=== PATIENT | male | born 1985 | race Caucasian/White ===

== ENCOUNTER 2016-10-18 13:02 | Emergency (ER) | payer MEDICAID ==
[2016-10-18 13:06] VITALS: BP 114/83; PULSE 79; RESP 14; TEMP 98.1; O2SAT 95
--- NOTE | 2016-10-18 13:22 | EDPHY ---
H & P Time Seen by Provider: 10/18/16 13:14 HPI/ROS: CHIEF COMPLAINT: right great toe pain HISTORY OF PRESENT ILLNESS: 31-year-old male presents emergency department reporting chronic ingrown toenails over his life. He states his right lateral toenail has been hurting for the last few days. He denies fevers or chills, no redness, no numbness or tingling to this foot, no other concerns. Smoking Status: Current some day smoker Physical Exam: GEN: Awake, alert, oriented, no acute distress RESP: nl resp effort MSK: Right great toe with full active flexion and extension at IP joint and MCP joint, cap refill less than 2 seconds SKIN: Right lateral toe nail of great toe with mild erythema to skin, no fluctuance, no drainage, no swelling. Constitutional: Initial Vital Signs Temperature (C) 36.7 C 10/18/16 13:04 Heart Rate 79 10/18/16 13:04 Respiratory Rate 14 10/18/16 13:04 Blood Pressure 114/83 H 10/18/16 13:04 O2 Sat (%) 95 10/18/16 13:04 O2 Delivery Mode Room Air Allergies/Adverse Reactions: No Known Allergies Allergy (Verified 08/23/16 19:56) Home Medications: Medication Instructions Recorded NK [No Known Home Meds] 10/18/16 MDM/Departure - Depart Disposition: Home, Routine, Self-Care Clinical Impression: Ingrown toenail without infection Condition: Good Instructions: Ingrown Nail (ED) Additional Instructions: Warm Epson salt soaks 5 times a day for 10 minutes. Follow up with the shoulder boner as needed. Return to the emergency department for fevers, pain that is not controlled, other questions or concerns. Take 600 mg of ibuprofen every 8 hours with food for 3-5 days as needed for pain. Referrals: Kip Avelar MD [Doctor of Podiatric Medicine] - As per Instructions (Director Targeted Marketing on-call )
== END 2016-10-18 13:48 | disposition home or self-care (01) ==
DX: L60.0 Ingrowing nail (principal); F17.200 Nicotine dependence, unspecified, uncomplicated

== ENCOUNTER 2016-11-28 09:59 | Emergency (ER) | payer MEDICAID ==
[2016-11-28 10:04] VITALS: BP 148/86; PULSE 71; RESP 16; TEMP 97.5; O2SAT 99
[2016-11-28] MEDS ORDERED: IBUPROFEN 600 MG TAB PO ONE (10:52)
--- NOTE | 2016-11-28 11:10 | EDPHY ---
H & P Time Seen by Provider: 11/28/16 11:01 HPI/ROS: This is a 31-year-old male presenting to the emergency department complaining of lower back pain. Patient states he has been increasing his exercise activity , lifting weights and bike riding, felt a pulled muscle 4-5 days ago. Patient states needs work note. Denies any other complaints REVIEW OF SYSTEMS: Constitutional: (-)fever (+)decrease in exercise due lower back pain Respiratory: (-)cough (-)shortness of breath Cardiac: (-)chest pain (-)palpitations Gastrointestinal: (-)abdominal pain Genitourinary: (-)bowel/bladder incont Musculoskeletal: (+) lower back pain Skin: (-)rashes Neurological: (-) headache (-)dizziness Psych: (-)anxiety (-)SI/HI Past Medical/Surgical History: PMH: Diverticulitis Smoking Status: Never smoked Physical Exam: CONSTITUTIONAL: patient appeared well nourished, non-ill appearing and normally developed. No acute distress. Vital signs as documented. HEENT: NCAT. PERRLA. NECK: Supple, FROM RESP: Non-labored resp effort, CTAB CARDIAC: RRR w/o murmur, lior. Normal S1/S2 GI: Abd soft NTTP, NEURO: AAOx3 NAD, ambulatory without difficulty MSK/EXTREMITIES: (+)lower back pain (-)midline tenderness (-)deformity noted one exam (+)left straight leg raises (+)FROM without difficulty. (+)cms intact SKIN: (-)rash. PSYCH: Normal affect, calm, no distress Constitutional: Initial Vital Signs Temperature (C) 36.4 C 11/28/16 10:01 Heart Rate 71 11/28/16 10:01 Respiratory Rate 16 11/28/16 10:01 Blood Pressure 148/86 H 11/28/16 10:01 O2 Sat (%) 99 11/28/16 10:01 O2 Delivery Mode Room Air Allergies/Adverse Reactions: No Known Allergies Allergy (Verified 11/28/16 10:00) Home Medications: Medication Instructions Recorded Cyclobenzaprine [Flexeril 10 MG 10 mg PO TID PRN #15 tab 11/28/16 (*)] Medical Decision Making ED Course/Re-evaluation: Discharge home---> stable, Discussed discharge plan with patient 1. Rest 2. Decrease strenuous activity 3. Heating pad or hot tub soaks to lower back with beneficial 4. Wearing a weight belt will be beneficial to decrease strain lower back 5. Ibuprofen 600 mg every 6-8 hours as needed, also take additional medication as needed Flexeril for as a muscle relaxer 6. Follow up with primary care as needed Differential Diagnosis: Clinical impression lower back pain with left sciatica, other differential diagnosis considered but not limited to left hamstring strain, traumatic injury and inguinal hernia - Data Points Medications Given: Discontinued Medications Ibuprofen (Motrin) 600 mg PO EDNOW ONE Stop: 11/28/16 10:53 Last Admin: 11/28/16 11:04 Dose: 600 mg Departure - Departure Disposition: Home, Routine, Self-Care Clinical Impression: Pain of back and left lower extremity Condition: Good Instructions: Low Back Strain (ED), Lower Back Exercises (ED) Additional Instructions: Discussed discharge plan with patient 1. Rest 2. Decrease strenuous activity 3. Heating pad or hot tub soaks to lower back with beneficial 4. Wearing a weight belt will be beneficial to decrease strain lower back 5. Ibuprofen 600 mg every 6-8 hours as needed, also take additional medication as needed Flexeril for as a muscle relaxer 6. Follow up with primary care as needed Referrals: [facility],. [Clinic] - As per Instructions Stand Alone Forms: Work Excuse Prescriptions: Cyclobenzaprine [Flexeril 10 MG (*)] 10 mg PO TID PRN #15 tab PRN Reason: Spasms
== END 2016-11-28 11:39 | disposition home or self-care (01) ==
DX: S39.92XA Unspecified injury of lower back, initial encounter (principal); S89.92XA Unspecified injury of left lower leg, initial encounter; X50.3XXA Overexertion from repetitive movements, initial encounter

== ENCOUNTER 2017-07-10 15:22 | Emergency (ER) | payer SELFPAY ==
[2017-07-10 15:36] VITALS: BP 122/108; PULSE 86; RESP 16; TEMP 97.7; O2SAT 97
--- NOTE | 2017-07-10 16:18 | EDPHY ---
H & P Time Seen by Provider: 07/10/17 16:07 HPI/ROS: CHIEF COMPLAINT: Left Achilles pain x1 year HISTORY OF PRESENT ILLNESS: 31-year-old male status post left Achilles surgery 1 year ago by an orthopedic surgeon in [place], [place], post Achilles tendon rupture, complaining of ongoing left Achilles pain worsened by standing for prolonged periods. 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 No foot drop. No paresthesia. No direct trauma or fall. No discoloration. PRIMARY CARE PROVIDER: REVIEW OF SYSTEMS: A ten point review of systems was performed and is negative with the exception of the items mentioned in the HPI PHYSICAL EXAM (Prior to examination, patient consented to physical exam, hands were washed and my usual and customary physical exam procedures followed) 1) GENERAL: Well-developed, well-nourished, alert and oriented. Appears to be in no acute distress. 2) HEAD: Normocephalic 3) HEENT: Pupils equal, round, reactive to light bilaterally. 4) LUNGS: Breathing comfortably. 5) MUSCULOSKELETAL: proximal tibia and fibula nontender . Posterior Achilles surgical scar noted, as well granulated. No signs of infection. 5th MT nontender negative Mandujano test, compartments soft. Negative Homans. No palpable cord. 6) SKIN: normal coloration. 7) VASCULAR: DP,PT pulses and cap refill present and brisk DIFFERENTIAL DIAGNOSIS: in no particular order including but not limited to fracture, sprain, compartment syndrome Procedure: Splint A Shahbaz boot splint was applied by ER submarine cable equipment technician. After application of the splint I returned and re-examined the patient. The splint was adequately immobilizing the joint and distal to the splint the patient's circulation and sensation were intact. Patient shows no signs of compartment syndrome. Was given orthopedic precautions. Smoking Status: Never smoked Constitutional: Initial Vital Signs Temperature (C) 36.5 C 07/10/17 15:34 Heart Rate 86 07/10/17 15:34 Respiratory Rate 16 07/10/17 15:34 Blood Pressure 122/108 H 07/10/17 15:34 O2 Sat (%) 97 07/10/17 15:34 O2 Delivery Mode Room Air Allergies/Adverse Reactions: No Known Allergies Allergy (Verified 07/10/17 15:33) Home Medications: Medication Instructions Recorded Hydrocodone/APAP 5/325 [[place] 1 tab PO Q6 PRN #10 tab 07/10/17 5/325 (RX)] MDM/Departure - MDM Procedures: Procedure: Splint A Shahbaz boot splint was applied by ER submarine cable equipment technician. After application of the splint I returned and re-examined the patient. The splint was adequately immobilizing the joint and distal to the splint the patient's circulation and sensation were intact. Patient shows no signs of compartment syndrome. Was given orthopedic precautions. ED Course/Re-evaluation: This patient's foot ankle lower extremity appear well at this time. Doubt DVT, doubt compartment syndrome. We discussed chronic pain management. Not think that emergent imaging studies are indicated at this time. We discussed elevation, splinting. He has been given a [place] boot, given analgesia, recommend he contact his orthopedic surgeon in [facility] for re- evaluation. Given usual and customary orthopedic precautions and instructions.Care of patient under supervision of secondary supervising physician Dr Delong . - Depart Disposition: Home, Routine, Self-Care Clinical Impression: Left Achilles pain Condition: Good Instructions: Ankle Sprain (ED) Additional Instructions: Return to the ER immediately if you experience discoloration, have worsening pain, numbness, tingling, or any other symptoms that concern you. If you received x-rays in the emergency department today, be advised, that ligamentous , tendon, muscular, and other non-bony injury cannot be fully ruled out. Try to keep your affected extremity elevated above the level of your chest, and keep cold packs on the affected area, for the next 48 hours. Stand Alone Forms: Work Excuse Prescriptions: Hydrocodone/APAP 5/325 [[place] 5/325 (RX)] 1 tab PO Q6 PRN #10 tab PRN Reason: Pain, Severe Referrals: Marika Kaminski MD [Medical Doctor] - 2-3 days, call for appt. (Dr. Kaminski is a [facility] orthopedic surgeon, I recommend you contact your original orthopedic surgeon in [place].)
[2017-07-10] MEDS ORDERED: OXYCODONE/APAP 5/325 TAB PO ONE (16:26)
== END 2017-07-10 17:05 | disposition home or self-care (01) ==
DX: M79.672 Pain in left foot (principal)
CPT/HCPCS: L4386

== ENCOUNTER 2017-08-27 01:55 | Emergency (ER) | payer MEDICAID, OTHER ==
[2017-08-27] MEDS ORDERED: ONDANSETRON DISINTEGRATING 4 MG TAB ONE (02:10)
[2017-08-27] MEDS ORDERED: ONDANSETRON DISINTEGRATING 4 MG TAB PO ONE (02:28)
[2017-08-27] MEDS ORDERED: PANTOPRAZOLE SODIUM 40 MG VIAL IVP ONE (02:31)
[2017-08-27 02:36] LABS: % IMMATURE GRANULYOCYTES 0.9 % (0.0-1.1); ABSOLUTE IMMATURE GRANULOCYTES 0.09 10^3/uL (0.00-0.10); ADD DIFF? NO; ADD MORPH? NO; ADD SCAN? NO; ATYPICAL LYMPHOCYTE FLAG 0 (0-99); FRAGMENT RBC FLAG 0 (0-99); HEMATOCRIT 49.6 % (40.0-51.0); HEMOGLOBIN 17.2 g/dL (13.7-17.5); LEFT SHIFT FLG 0 (0-99); LIPEMIA HEMOLYSIS FLAG 90 (0-99); MEAN CELL HEMOGLOBIN 31.6 pg (27.9-34.1); MEAN CELL HEMOGLOBIN CONCENTR. 34.7 g/dL (32.4-36.7); MEAN PLATELET VOLUME 9.7 fL (8.7-11.7); PLATELET CLUMPS FLAG 0 (0-99); PLATELET COUNT 300 10^3/uL (150-400); RED BLOOD CELL COUNT 5.45 10^6/uL (4.40-6.38); RED CELL DISTRIBUTION WIDTH 13.1 % (11.5-15.2)
[2017-08-27 02:49] LABS: ANION GAP 18 mEq/L (8-16); CALCIUM 9.7 mg/dL (8.5-10.4); CARBON DIOXIDE 19 mEq/l (22-31); CHLORIDE 111 mEq/L (97-110); CREATININE 0.9 mg/dL (0.7-1.3); ETHANOL SERUM 135 mg/dL (0-10); GLOMERULAR FILTRATION RATE > 60; GLUCOSE 81 mg/dL (70-100); POTASSIUM 4.5 mEq/L (3.5-5.2); SODIUM 148 mEq/L (134-144)
--- NOTE | 2017-08-27 03:16 | EDPHY ---
H & P Stated Complaint: SI- M1 - Personal History Current Tetanus/Diphtheria Vaccine: Yes Tetanus Vaccine Date: 2013 - Medical/Surgical History Hx Asthma: No Hx Chronic Respiratory Disease: No Hx Diabetes: No Hx Cardiac Disease: No Hx Renal Disease: No Hx Cirrhosis: No Hx Alcoholism: No Hx HIV/AIDS: No Hx Splenectomy or Spleen Trauma: No Other PMH: PSH- L 5TH FINGER, L ACHILES. PMH-diverticulitis, ADHD, PTSD, HTN, manic-depressant, bipolar, schizophrenia, - Social History Smoking Status: Never smoked Time Seen by Provider: 08/27/17 02:31 HPI/ROS: Chief Complaint: Suicidal, vomiting blood HPI: 31-year-old male with a history of depression presenting complaining of worsening depression and suicidal ideation. He is not currently taking antidepressant medications. He states that he is fleeting plans of walking into traffic but does definitive plan at this time. Patient is also complaining of worsening abdominal pain with nausea vomiting. He has been lap vomiting for the last 4 days. For the last 2 days he has been having blood in his vomit. He also states that he is having dark black stools. Also reports a history of diverticulosis but denies diarrhea or bright red blood per rectum. No fevers or chills. No chest pain or shortness of breath. Patient states he does drink some alcohol but not heavily or regularly. No history of liver disease that he is aware of. ROS: 10 point Review of Systems is negative except as noted in the HPI. PMH: Depression, diverticulosis, Achilles tendon rupture Social History: Positive smoking, occasional alcohol Family History: non-contributory Physical Exam: Gen: Awake, Alert, No Distress HEENT: Nose: no rhinorrhea Eyes: PERRLA, EOMI Mouth: Moist mucosa Neck: Supple, no JVD Chest: nontender, lungs clear to auscultation Heart: S1, S2 normal, no murmur Abd: Soft, moderate epigastric tenderness, no guarding Back: no CVA tenderness, no midline tenderness Ext: no edema, non-tender Skin: no rash Neuro: CN II-XII intact, Sensation grossly intact, Strength 5/5 in bilateral upper and lower extremities (Wayne Marti) Constitutional: Initial Vital Signs Temperature (C) 36.9 C 08/27/17 02:01 Heart Rate 99 08/27/17 02:01 Respiratory Rate 20 08/27/17 02:01 Blood Pressure 111/87 H 08/27/17 02:01 O2 Sat (%) 96 08/27/17 02:01 O2 Delivery Mode Room Air Allergies/Adverse Reactions: No Known Allergies Allergy (Verified 08/27/17 02:00) Home Medications: Medication Instructions Recorded CLONAZEPAM 08/27/17 Seroquel 08/27/17 Medical Decision Making ED Course/Re-evaluation: 31-year-old male with epigastric pain reports of hematemesis. He has had hematemesis in the department. Is a mix of coffee-ground emesis and bright red blood. Rectal exam shows brown stool, no melena. Will check labs. I had ordered a proton pump inhibitor. Patient is improved. He has a soft benign abdomen. Rectal exam is negative for occult blood. His CBC is normal. Remainder of his laboratory studies are completely normal. Symptoms are consistent with a Eve-Mathis tear. No evidence of significant upper abdominal bleeding at this time. 0700 patient signed out to Dr. Hollis pending health evaluation. He has had no further vomiting here. Symptoms improved. He is medically cleared for mental health evaluation. (Wayne Marti) 7:00 a.m.-I assumed care of this patient at shift change. He is currently agitated and pacing. Ativan 1 mg IV given. Repeat hematocrit ordered. Recent history of hematemesis after multiple episodes of vomiting, most likely Eve- Mathis tear. Initial hematocrit normal. Protonix given last night. 9am-repeat Hct unchanged. No further episodes of vomiting. No evidence of GI bleed. 1pm-This patient was seen by mental health and will be placed in a CSU. 3pm-signed over to Dr. Jones at shift change. (Lisa Hollis) 1500: The patient is signed out to me at change of shift. The patient is stable. Patient was stable during his stay. No new complaints. 2300: The patient is signed out to Dr. Camacho at change of shift. (Jo Ann Jones) I took over care of this patient at 11:00 p.m.. This patient is on an M1 hold for suicidal ideation. The patient is to be admitted to a psychiatric facility. Placement is pending at this time. 6:45 a.m., the patient is acutely agitated. We have attempted to verbally calm him down. He will not take in oral medication. He is in agreement to intramuscular medication. He was given 10 mg of Haldol with 2 mg of Versed IM. 7:00 a.m., patient relaxed and calm. Care turned over to Dr. Marielle Dias at this time. He still awaits placement for psychiatric admission. (Angie Camacho) Other Provider: I assumed care of this patient from Dr. Camacho at 7:00 a.m., change of shift. Patient had recently been agitated and decision has been made to sedate the patient. On my examination at 7:10 a.m., patient is now sedated, laying in his bed, sleeping. We will await placement. (Marielle Dias) - Data Points Laboratory Results: Laboratory Results 08/27/17 07:05 08/27/17 02:26 Medications Given: Discontinued Medications Clonazepam (Klonopin) 1 mg PO EDNOW ONE Stop: 08/27/17 19:39 Last Admin: 08/27/17 19:45 Dose: 1 mg Clonazepam (Klonopin) 1 mg PO EDNOW ONE Stop: 08/28/17 06:13 Last Admin: 08/28/17 06:13 Dose: 1 mg Clonazepam (Klonopin) 1 mg PO EDNOW ONE Stop: 08/28/17 13:06 Last Admin: 08/28/17 13:10 Dose: 1 mg Diphenhydramine HCl (Benadryl) 50 mg PO EDNOW ONE Stop: 08/27/17 19:39 Last Admin: 08/27/17 19:46 Dose: 50 mg Haloperidol Lactate (Haldol Injection) 10 mg IM EDNOW ONE Stop: 08/28/17 06:44 Last Admin: 08/28/17 06:58 Dose: 10 mg Haloperidol Lactate (Haldol Injection) 10 mg IM EDNOW ONE Stop: 08/28/17 13:59 Last Admin: 08/28/17 14:08 Dose: 10 mg Lorazepam (Ativan Injection) 1 mg IVP EDNOW ONE Stop: 08/27/17 07:02 Last Admin: 08/27/17 07:11 Dose: 1 mg Lorazepam (Ativan) 1 mg PO EDNOW ONE Stop: 08/27/17 11:29 Last Admin: 08/27/17 11:31 Dose: 1 mg Midazolam HCl (Versed) 2 mg IM EDNOW ONE Stop: 08/28/17 06:45 Last Admin: 08/28/17 06:58 Dose: 2 mg Midazolam HCl (Versed) 2 mg IM EDNOW ONE Stop: 08/28/17 14:00 Last Admin: 08/28/17 14:08 Dose: 2 mg Ondansetron HCl (Zofran Odt) 4 mg PO EDNOW ONE Stop: 08/27/17 02:29 Last Admin: 08/27/17 02:38 Dose: 4 mg Pantoprazole Sodium (Protonix) 40 mg IVP EDNOW ONE Stop: 08/27/17 02:32 Last Admin: 08/27/17 02:38 Dose: 40 mg Quetiapine Fumarate (Seroquel) 200 mg PO EDNOW ONE Stop: 08/27/17 19:39 Last Admin: 08/27/17 19:46 Dose: 200 mg Departure - Departure Disposition: Other Psych, Not Rina Clinical Impression: Suicidal ideation Condition: Good Referrals: NONE *PRIMARY CARE P,. [Primary Care Provider] - As per Instructions
[2017-08-27 03:39] LABS: ALBUMIN 4.6 g/dL (3.5-5.0); BILIRUBIN,TOTAL 0.5 mg/dL (0.1-1.4); BILIRUBIN-CONJUGATED 0.4 mg/dL (0.0-0.5); BILIRUBIN-UNCONJUGATED 0.1 mg/dL (0.0-1.1); TOTAL PROTEIN 7.9 g/dL (6.3-8.2)
[2017-08-27 03:40] LABS: INR 0.95 (0.83-1.16); PROTIME(PATIENT) 12.9 SEC (12.0-15.0)
[2017-08-27 03:41] LABS: APTT 30.2 SEC (23.0-38.0)
[2017-08-27] MEDS ORDERED: LORazepam 2 MG/ML INJ IVP ONE (07:01)
[2017-08-27 07:17] LABS: % IMMATURE GRANULYOCYTES 0.7 % (0.0-1.1); ABSOLUTE IMMATURE GRANULOCYTES 0.08 10^3/uL (0.00-0.10); ADD DIFF? NO; ADD MORPH? NO; ADD SCAN? NO; ATYPICAL LYMPHOCYTE FLAG 10 (0-99); FRAGMENT RBC FLAG 0 (0-99); HEMATOCRIT 49.3 % (40.0-51.0); LEFT SHIFT FLG 0 (0-99); LIPEMIA HEMOLYSIS FLAG 90 (0-99); MEAN CELL HEMOGLOBIN 31.5 pg (27.9-34.1); MEAN CELL HEMOGLOBIN CONCENTR. 34.5 g/dL (32.4-36.7); MEAN CELL VOLUME 91.5 fL (81.5-99.8); MEAN PLATELET VOLUME 9.6 fL (8.7-11.7); PLATELET CLUMPS FLAG 0 (0-99); PLATELET COUNT 290 10^3/uL (150-400); RED BLOOD CELL COUNT 5.39 10^6/uL (4.40-6.38); RED CELL DISTRIBUTION WIDTH 13.2 % (11.5-15.2)
[2017-08-27] MEDS ORDERED: LORazepam 1 MG TAB PO ONE (11:28)
[2017-08-27] MEDS ORDERED: diphenhydrAMINE 25 MG CAP PO ONE (19:38)
[2017-08-27] MEDS ORDERED: clonazePAM 1 MG TAB PO ONE (19:38)
[2017-08-27] MEDS ORDERED: QUEtiapine FUMARATE 200 MG TAB PO ONE (19:38)
[2017-08-28] MEDS ORDERED: clonazePAM 1 MG TAB ONE (06:09)
[2017-08-28] MEDS ORDERED: clonazePAM 1 MG TAB PO ONE (06:12)
[2017-08-28] MEDS ORDERED: OLANZapine DISINTEGR 10 MG TAB ONE (06:39)
[2017-08-28] MEDS ORDERED: HALOPERIDOL LACT 5 MG/ML INJ IM ONE (06:43)
[2017-08-28] MEDS ORDERED: MIDAZOLAM 2 MG/2 ML VIAL ONE (06:44)
[2017-08-28] MEDS ORDERED: MIDAZOLAM 10 MG/2 ML VIAL IM ONE (06:44)
[2017-08-28] MEDS ORDERED: HALOPERIDOL LACT 5 MG/ML INJ ONE (06:44)
[2017-08-28] MEDS ORDERED: MIDAZOLAM 10 MG/2 ML VIAL ONE (06:45)
[2017-08-28 07:54] VITALS: RESP 16; TEMP 97.9
[2017-08-28] MEDS: clonazePAM 1 MG TAB PO ONE ×2 (13:09→13:10)
[2017-08-28 13:42] VITALS: BP 144/86; PULSE 88; O2SAT 95
[2017-08-28] MEDS: MIDAZOLAM 10 MG/2 ML VIAL IM ONE (14:08)
[2017-08-28] MEDS: HALOPERIDOL LACT 5 MG/ML INJ IM ONE (14:08)
== END 2017-08-28 13:40 ==
LOC: EEVIPCON 01:55
DX: R45.851 Suicidal ideations (principal); I10 Essential (primary) hypertension
CPT/HCPCS: 80305; 96374; G0480; J2060; J2250

== ENCOUNTER 2017-09-23 11:51 | Emergency (ER) | payer MEDICAID ==
[2017-09-23 12:12] VITALS: RESP 16; TEMP 97.7
[2017-09-23] MEDS ORDERED: LORazepam 2 MG/ML INJ IVP ONE (12:27)
--- NOTE | 2017-09-23 12:48 | EDPHY ---
General - History Smoking Status: Never smoked Narrative: CHIEF COMPLAINT: Alcohol withdrawal HISTORY OF PRESENT ILLNESS: Patient arrives with complaint of alcohol withdrawal. He says that he wants to get off alcohol. He attempted to do so last night by [facility] He says that they turned him away due to his previous Klonopin use. He says he is not on the Klonopin for 2-3 days and started feeling shaky. He also had not had anything to drink for 2 days. He was concern for withdrawal so he went and had some alcohol late last night and into this morning. This has improved his symptoms. He has no tremor at this time. Some nausea but no vomiting. No chest pain or shortness of breath. No headache or dizziness. No other associated complaints or modifying factors. REVIEW OF SYSTEMS: Ten systems reviewed and are negative unless otherwise noted in the HPI PCP: [facility] SPECIALISTS: None PAST MEDICAL HISTORY: Alcohol abuse, depression and insomnia PAST SURGICAL HISTORY: No surgical history SOCIAL HISTORY: Heavy alcohol use with approximately 12 pack per day of beers over the past 20 years. Last intake was several beers at 7:00 a.m. this morning FAMILY HISTORY: Noncontributory EXAMINATION General Appearance: Alert, no distress resting comfortably watching television Head: normocephalic, atraumatic Eyes: Pupils equal and round, no conjunctival pallor or injection ENT, Mouth: Mucous membranes moist Neck: Normal inspection, supple, non-tender Respiratory: Lungs are clear to auscultation Cardiovascular: Regular rate and rhythm. No murmur Gastrointestinal: Abdomen is soft and nontender Back: non-tender, no bony abnormalities Neurological: GCS 15. Cranial nerves 2-12 grossly intact. No tremor. A&O, nonfocal, normal gait. Strength is symmetric in all 4 limbs. No pronator drift. Normal finger to nose. Skin: Warm and dry, no rash Extremities: Nontender, no pedal edema Psychiatric: Mood and affect normal DIFFERENTIAL DIAGNOSES: Including but not limited to acute alcohol intoxication, alcohol withdrawal, delirium tremens MDM: 12:45 p.m. Acute alcohol intoxication of patient does admit to alcohol use daily. He was feeling symptomatic last night and attempted to go [facility]. He says that he instead went home and drink some alcohol this morning. He is now here asking for help and would like to go to the [facility] for detox. He is not encephalopathic or delirious. Vital signs are stable. He is tolerating intake by mouth. He has no tremor or seizure-like activity. He does appear to be intoxicated but is clinically sober with no slurred speech and fully ambulatory without assistance. I do feel he is stable for discharge to the [facility] with standard Librium protocol. He will be sent over by cab directly with no stops. We discussed ED precautions for any return of symptoms, chest pain, difficulty thought process. He is comfortable this plan and discharged in stable condition. SUPERVISION: Patient was independently examined, but I discussed the case with my secondary supervising physician Dr. Figueroa ([facility]) The patient was evaluated and managed by the physician prosthetic assistant. I have reviewed this chart and I agree with the findings and plan of care as documented , as indicated by my signature. I am the secondary supervising physician. ( Penny Figueroa) - Objective Vital Signs: Initial Vital Signs Temperature (C) 36.5 C 09/23/17 11:51 Heart Rate 100 09/23/17 11:51 Respiratory Rate 16 09/23/17 11:51 Blood Pressure 124/94 H 09/23/17 11:51 O2 Sat (%) 96 09/23/17 11:51 O2 Delivery Mode Room Air Allergies/Adverse Reactions: No Known Allergies Allergy (Verified 09/23/17 14:50) Home Medications: Medication Instructions Recorded CLONAZEPAM 08/27/17 Seroquel 08/27/17 Medications Given: Discontinued Medications Chlordiazepoxide (Librium 25 Mg Prepack#6) 1 btl TAKEHOME EDNOW ONE Stop: 09/23/17 12:50 Last Admin: 09/23/17 12:59 Dose: 1 btl Chlordiazepoxide HCl (Librium) 50 mg PO EDNOW ONE Stop: 09/23/17 14:34 Last Admin: 09/23/17 14:45 Dose: Not Given Lorazepam (Ativan Injection) 1 mg IVP EDNOW ONE Stop: 09/23/17 12:28 Last Admin: 09/23/17 12:31 Dose: 1 mg Departure - Departure Disposition: Home, Routine, Self-Care Clinical Impression: Alcohol abuse Acute alcohol intoxication Qualifiers: Complication of substance-induced condition: uncomplicated Qualified Code(s): F10.929 - Alcohol use, unspecified with intoxication, unspecified Condition: Good Instructions: Chlordiazepoxide (By mouth), Alcohol Intoxication (ED), Abuse of Alcohol (ED) Additional Instructions: 1. Proceed directly to the [facility] without stops by cab 2. Librium protocol per usual Referrals: [facility],. [Clinic] - As per Instructions [facility] 24 Hours [Outside] - As per Instructions
[2017-09-23] MEDS ORDERED: CHLORDIAZEPOXIDE 25MG PREPK#6 BTL TAKEHOME ONE (12:49)
[2017-09-23 13:12] VITALS: BP 129/91; PULSE 102; O2SAT 94
[2017-09-23] MEDS ORDERED: chlordiazePOXIDE 25 MG CAP PO ONE (14:33)
== END 2017-09-23 13:11 | disposition home or self-care (01) ==
LOC: EDUNIT#
DX: F10.129 Alcohol abuse with intoxication, unspecified (principal)
CPT/HCPCS: 96374; J2060

== ENCOUNTER 2017-09-23 14:49 | Emergency (ER) | payer MEDICAID ==
[~2017-09-23 14:49] MED LIST: QUEtiapine FUMARATE 300 MG TAB PO SCH; clonazePAM 0.5 MG TAB PO SCH
[2017-09-23 14:59] VITALS: TEMP 98.2
--- NOTE | 2017-09-23 15:06 | EDPHY ---
H & P Stated Complaint: just discharged to [facility]/feeling suicidal Time Seen by Provider: 09/23/17 15:02 HPI/ROS: CHIEF COMPLAINT: Suicidal ideation HISTORY OF PRESENT ILLNESS: The patient presents to the ED with suicidal ideation. He was seen in the emergency department earlier today with alcohol intoxication. The plan was for the [facility] to [facility]. Immediately after leaving the department the patient returned with a chief complaint of suicidal ideation. The patient tells me that he is no longer suicidal but simply made that statement at triage because he was not able to go to the [facility] secondary to his clonazepam use. The patient states he is simply "looking for help." The patient denies any ingestion. The patient typically takes clonazepam 1 mg daily and 300 mg of Seroquel. REVIEW OF SYSTEMS: A comprehensive 10 point review of systems is otherwise negative aside from elements mentioned in the history of present illness. Source: Patient - Personal History Current Tetanus/Diphtheria Vaccine: Yes Tetanus Vaccine Date: 2013 - Medical/Surgical History Hx Asthma: No Hx Chronic Respiratory Disease: No Hx Diabetes: No Hx Cardiac Disease: No Hx Renal Disease: No Hx Cirrhosis: No Hx Alcoholism: Yes Hx HIV/AIDS: No Hx Splenectomy or Spleen Trauma: No Other PMH: PSH- L 5TH FINGER, L ACHILES. PMH-diverticulitis, ADHD, PTSD, HTN, manic-depressant, bipolar, schizophrenia, ETOH - Social History Smoking Status: Never smoked - Physical Exam Exam: General Appearance: Alert, no distress Eyes: Pupils equal and round no pallor or injection ENT, Mouth: Mucous membranes moist Respiratory: There are no retractions, lungs are clear to auscultation Cardiovascular: Regular rate and rhythm Gastrointestinal: Abdomen is soft and nontender, no masses, bowel sounds normal Neurological: A&O, normal motor function, normal sensory exam, normal cranial nerves Skin: Warm and dry, no rashes Musculoskeletal: Neck is supple nontender Extremities: symmetrical, full range of motion Psychiatric: Alert and oriented x3, currently denying suicidal ideation, does report depression and anxiety surrounding problems with his relationship with his mother in [place] and his ongoing alcohol dependence. Constitutional: Initial Vital Signs Temperature (C) 36.8 C 09/23/17 14:50 Heart Rate 94 09/23/17 14:50 Respiratory Rate 18 09/23/17 14:50 Blood Pressure 138/90 H 09/23/17 14:50 O2 Sat (%) 94 09/23/17 14:50 O2 Delivery Mode Room Air Allergies/Adverse Reactions: No Known Allergies Allergy (Verified 09/23/17 14:50) Home Medications: Medication Instructions Recorded CLONAZEPAM 08/27/17 Seroquel 08/27/17 QUEtiapine FUMARATE [Seroquel 300 mg PO HS #4 tab 09/23/17 300mg (*)] clonazePAM [Klonopin (*)] 0.5 mg PO HS #4 tab 09/23/17 Medical Decision Making ED Course/Re-evaluation: I reviewed the patient's past medical record including his ED visit from earlier today. The patient presents to the ED with depression and fleeting suicidal thoughts surrounding his alcohol dependence. The patient was medically cleared for psychiatric evaluation. The patient was seen by [facility]. They have made arrangements for the patient to be [facility]. He will be discharged to the facility with a 4 day supply of his regular Seroquel and clonazepam. The patient is no longer suicidal emergency department. He does contract for safety. He is comfortable being discharged to the [facility] for further assistance with his alcohol abuse. The patient will be discharged home with customary aftercare instructions and return precautions. Differential Diagnosis: Differential diagnosis considered includes alcohol abuse, alcohol dependence, suicidal ideation, psychosis - Data Points Laboratory Results: Laboratory Results 09/23/17 12:00 09/23/17 12:00 09/23/17 09/23/17 09/23/17 12:30 12:00 12:00 WBC 9.67 10^3/uL H 10^3/uL (3.80-9.50) RBC 5.64 10^6/uL 10^6/uL (4.40-6.38) Hgb 17.8 g/dL H g/dL (13.7-17.5) Hct 49.8 % % (40.0-51.0) MCV 88.3 fL fL (81.5-99.8) MCH 31.6 pg pg (27.9-34.1) MCHC 35.7 g/dL g/dL (32.4-36.7) RDW 13.1 % % (11.5-15.2) Plt Count 338 10^3/uL 10^3/uL (150-400) MPV 10.0 fL fL (8.7-11.7) Neut % (Auto) 64.3 % % (39.3-74.2) Lymph % (Auto) 27.7 % % (15.0-45.0) [place] % (Auto) 5.2 % % (4.5-13.0) Eos % (Auto) 1.1 % % (0.6-7.6) Baso % (Auto) 0.5 % % (0.3-1.7) Nucleat RBC Rel Count 0.0 % % (0.0-0.2) Absolute Neuts (auto) 6.21 10^3/uL 10^3/uL (1.70-6.50) Absolute Lymphs (auto) 2.68 10^3/uL 10^3/uL (1.00-3.00) Absolute Monos (auto) 0.50 10^3/uL 10^3/uL (0.30-0.80) Absolute Eos (auto) 0.11 10^3/uL 10^3/uL (0.03-0.40) Absolute Basos (auto) 0.05 10^3/uL 10^3/uL (0.02-0.10) Absolute Nucleated RBC 0.00 10^3/uL 10^3/uL (0-0.01) Immature Gran % 1.2 % H % (0.0-1.1) Immature Gran # 0.12 10^3/uL H 10^3/uL (0.00-0.10) Sodium 142 mEq/L mEq/L (134-144) Potassium 4.6 mEq/L mEq/L (3.5-5.2) Chloride 106 mEq/L mEq/L (97-110) Carbon Dioxide 11 mEq/l L mEq/l (22-31) Anion Gap 25 mEq/L H mEq/L (8-16) BUN 12 mg/dL mg/dL (7-23) Creatinine 1.1 mg/dL mg/dL (0.7-1.3) Estimated GFR > 60 Glucose 107 mg/dL H mg/dL (70-100) Calcium 10.1 mg/dL mg/dL (8.5-10.4) Urine Opiates Screen NEGATIVE (NEGATIVE) Urine Barbiturates NEGATIVE (NEGATIVE) Ur Phencyclidine Scrn NEGATIVE (NEGATIVE) Ur Amphetamine Screen NEGATIVE (NEGATIVE) U Benzodiazepines Scrn NON-NEGATIVE H (NEGATIVE) Urine Cocaine Screen NON-NEGATIVE H (NEGATIVE) U Marijuana (THC) Screen NON-NEGATIVE H (NEGATIVE) Ethyl Alcohol 87 mg/dL H mg/dL (0-10) Medications Given: Discontinued Medications Chlordiazepoxide (Librium 25 Mg Prepack#6) 1 btl TAKEHOME EDNOW ONE Stop: 09/23/17 18:46 Last Admin: 09/23/17 18:51 Dose: 1 btl Clonazepam (Klonopin) 0.5 mg PO EDNOW ONE Stop: 09/23/17 18:41 Last Admin: 09/23/17 18:41 Dose: 0.5 mg Lorazepam (Ativan) 1 mg PO EDNOW ONE Stop: 09/23/17 18:06 Last Admin: 09/23/17 18:11 Dose: 1 mg Quetiapine Fumarate (Seroquel) 300 mg PO EDNOW ONE Stop: 09/23/17 15:18 Last Admin: 09/23/17 15:59 Dose: 300 mg Departure - Departure Disposition: Home, Routine, Self-Care Clinical Impression: Alcoholism Condition: Good Instructions: Abuse of Alcohol (ED) Additional Instructions: 1. Please follow-up with the mental health resources provided in the ED today. 2. [facility], [facility] does operate a 24/7 psychiatric crisis unit located at [address] [place] [address]. The telephone number for the 24 hour crisis center is [phone]. 3. Please return to the ED if you are feeling suicidal, having thoughts of harming yourself/others or should you feel unsafe or have worsening symptoms. Referrals: [facility],. [Clinic] - As per Instructions Prescriptions: clonazePAM [Klonopin (*)] 0.5 mg PO HS #4 tab QUEtiapine FUMARATE [Seroquel 300mg (*)] 300 mg PO HS #4 tab
[2017-09-23 15:12] LABS: PLATELET COUNT 338 10^3/uL (150-400)
[2017-09-23] MEDS ORDERED: QUEtiapine FUMARATE 300 MG TAB PO ONE (15:17)
[2017-09-23] MEDS ORDERED: LORazepam 1 MG TAB PO ONE (18:05)
[2017-09-23 18:12] VITALS: RESP 18
[2017-09-23] MEDS ORDERED: clonazePAM 0.5 MG TAB ONE (18:31)
[2017-09-23] MEDS ORDERED: clonazePAM 0.5 MG TAB PO ONE (18:40)
[2017-09-23] MEDS ORDERED: CHLORDIAZEPOXIDE 25MG PREPK#6 BTL TAKEHOME ONE (18:45)
--- NOTE | 2017-09-23 18:50 | ASDISCHSUM ---
Discharge Information Plan Status:Substance Abuse Referrals Medically Cleared to Leave: Discharge Date: CM D/C Disposition:Other (Not listed) ADT D/C Disposition:Home, Routine, Self-Care Projected Discharge Date: Transportation at D/C:Cab Voucher Discharge Delay Reason: Follow-Up Date: Discharge Slot: Final Diagnosis: Placement Information Patient Contact Information Contact Name:IKE Relationship:Cousin Address: Work Phone: [place] [facility] Phone: State/[place] Email: Financial Information Financial Class: Primary Plan Desc:[employer] Primary Plan Number:[id number] Secondary Plan Desc: Secondary Plan Number: Assessment Information Intervention Information
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
[2017-09-23 19:16] VITALS: BP 114/85; PULSE 120; O2SAT 93
== END 2017-09-23 19:15 | disposition home or self-care (01) ==
DX: F10.20 Alcohol dependence, uncomplicated (principal); I10 Essential (primary) hypertension
CPT/HCPCS: 80305; G0480

== ENCOUNTER 2017-09-24 19:47 | Emergency (ER) | payer MEDICAID ==
--- NOTE | 2017-09-24 20:12 | EDPHY ---
H & P Stated Complaint: SI, ETOH - Personal History Tetanus Vaccine Date: 2013 - Medical/Surgical History Hx Asthma: No Hx Chronic Respiratory Disease: No Hx Diabetes: No Hx Cardiac Disease: No Hx Renal Disease: No Hx Cirrhosis: No Hx Alcoholism: Yes Hx HIV/AIDS: No Hx Splenectomy or Spleen Trauma: No Other PMH: PSH- L 5TH FINGER, L ACHILES. PMH-diverticulitis, ADHD, PTSD, HTN, manic-depressant, bipolar, schizophrenia, ETOH - Social History Smoking Status: Never smoked HPI/ROS: CHIEF COMPLAINT: Alcohol HISTORY OF PRESENT ILLNESS: The patient is a 32 y/o male with a history of alcoholism, bipolar disorder, schizoaffective disorder arriving via [employer] for alcohol and suicidal ideations. [employer] placed him on an M1. He was seen in this ED yesterday for suicidal ideation and asking for detox. He was [facility] to the [facility] but the patient left voluntarily because the "[facility] wouldn't give him his medications and were rude and disrespectful". Today he states "I don't want to live and I'm very unhappy, miserable, and lost". If he cannot be seen in this ED he states "give me a rope and I'll take care of it" as well as "I can't be on my own because I don't want to hurt myself". He believes he would feel better if he had somewhere to live and if he would be able to stop drinking. Denies taking Seroquel today. Denies chest pain, abdominal pain, bowel or urinary complaints, paresthesias or other pertinent symptoms. REVIEW OF SYSTEMS: A ten point review of systems was performed and is negative with the exception of the items mentioned in the HPI. Past medical history: Alcoholism Bipolar disorder Schizoaffective disorder ADHD Hypertension Past surgical history: Left 5th finger Left Achilles Family history: Denies Social history: Transient Single Alcohol use General Appearance: Agitated. Alert. Vital signs reviewed. Blood pressure 110/ 58, heart rate 110 at triage. Eyes: Pupils equal and round, no conjunctival injection, no discharge. Anicteric. ENT, Mouth: Mucous membranes are moist. Neck: No lymphadenopathy, supple. Respiratory: Lungs are clear to auscultation; no wheezes, rales, or rhonchi. Cardiovascular: Regular rate and rhythm; no murmur, rub, or gallop. Gastrointestinal: Abdomen is soft and nontender, no masses or organomegaly, bowel sounds normal. Skin: Warm and dry, no rashes on exposed skin, normal color. Well-healed linear scars on his forearms. There is an abrasion on the right distal forearm , palmar aspect--this does not appear to be a self-inflicted laceration. Back: Nontender to palpation over the thoracolumbar spine. Extremities: No lower extremity edema, no calf tenderness or swelling. Neurological: Alert and oriented. Moving all four extremities easily and equally. Psychiatric: Angry affect. (Penny Figueroa) Constitutional: Initial Vital Signs Temperature (C) 36.4 C 09/24/17 19:50 Heart Rate 110 H 09/24/17 19:50 Respiratory Rate 19 09/24/17 19:50 Blood Pressure 110/58 L 09/24/17 19:50 O2 Sat (%) 93 09/24/17 19:50 O2 Delivery Mode Room Air Allergies/Adverse Reactions: No Known Allergies Allergy (Verified 09/24/17 19:49) Home Medications: Medication Instructions Recorded CLONAZEPAM 08/27/17 Seroquel 08/27/17 QUEtiapine FUMARATE [Seroquel 300 mg PO HS #4 tab 09/23/17 300mg (*)] clonazePAM [Klonopin (*)] 0.5 mg PO HS #4 tab 09/23/17 Medical Decision Making ED Course/Re-evaluation: The patient is a 32 y/o male with a history of alcoholism, bipolar disorder, schizoaffective disorder arriving via [employer] for alcohol and suicidal ideations. Police have placed him on a mental health hold. On exam he is agitated and stating he is going to kill himself using a rope. Patient's blood alcohol is 162. Will await functional sobriety and have mental health re-evaluate him. I suspect that he is interested in a place to sleep tonight. I am not convinced that he is serious about getting sober. He does report suicidal thoughts, but I think that secondary gain is part of his motivation. Care transferred to Dr. Marti at 11 PM. (Penny Figueroa) Differential Diagnosis: Considered a differential diagnosis that includes but is not limited to effect of intoxicants, suicidality, homicidality, psychosis, depression, miley. (Penny Figueroa) Other Provider: 09/24/17 2300 care assumed by me from Dr. Figueroa pending sober mental health evaluation. 0400 patient increasingly agitated. Patient has been given Zyprexa 10 mg. Pain is now resting comfortably. Patient has been seen by the mental health head butler. They will be looking for placement for him. 0700 patient signed out to Dr. Cardenas pending placement. (Wayne Marti) 1500 - Patient signed out to Dr. Garcia pending placement. (Baltazar Cardenas) I assumed care of the patient at shift change. The patient was evaluated by [facility] who was range for the patient to be admitted at [facility]. The patient was accepted for admission by Dr. Narvaez. I have filled out the [facility] transfer form. (Dave Garcia) - Data Points Laboratory Results: Laboratory Results 09/24/17 20:02 09/24/17 20:02 Medications Given: Discontinued Medications Chlordiazepoxide HCl (Librium) 50 mg PO EDNOW ONE Stop: 09/25/17 08:51 Last Admin: 09/25/17 09:10 Dose: 50 mg Lorazepam (Ativan) 1 mg PO EDNOW ONE Stop: 09/25/17 10:06 Last Admin: 09/25/17 10:12 Dose: 1 mg Olanzapine (Zyprexa Im Injection) 10 mg IM EDNOW ONE Stop: 09/25/17 02:41 Last Admin: 09/25/17 02:47 Dose: 10 mg Quetiapine Fumarate (Seroquel) 100 mg PO EDNOW ONE Stop: 09/25/17 10:06 Last Admin: 09/25/17 10:12 Dose: 100 mg Departure - Departure Disposition: Other Psych, Not [place] Clinical Impression: Alcoholism, Suicidal ideation Condition: Good Instructions: Abuse of Alcohol (ED) Referrals: [facility] [Outside] - As per Instructions Report Scribed for: Penny Figueroa Report Scribed by: Barbara Whitehead Date of Report: 09/24/17 Time of Report: 21:02 Physician Review and Approval Statement: 09/24/17 20:12 Portions of this note were transcribed by the certified medical records coder. I, Dr. Penny Figueroa, personally performed the history, physical exam, and medical decision- making; and confirmed the accuracy of the information in the transcribed note. ( Penny Figueroa)
[2017-09-24 20:19] LABS: PLATELET COUNT 258 10^3/uL (150-400)
[2017-09-25] MEDS ORDERED: OLANZapine 10 MG/2 ML VIAL ONE (02:35)
[2017-09-25] MEDS ORDERED: OLANZapine 10 MG/2 ML VIAL IM ONE (02:40)
[2017-09-25] MEDS ORDERED: chlordiazePOXIDE 25 MG CAP PO ONE (08:50)
[2017-09-25] MEDS ORDERED: IBUPROFEN 200 MG TAB PO ONE (09:08)
[2017-09-25] MEDS ORDERED: QUEtiapine FUMARATE 200 MG TAB PO ONE (10:05)
[2017-09-25] MEDS ORDERED: LORazepam 1 MG TAB PO ONE ×2 (10:05→18:43)
[2017-09-25 17:34] VITALS: BP 117/89; PULSE 80; RESP 18; TEMP 98.2; O2SAT 96
[2017-09-25] MEDS ORDERED: LORazepam 1 MG TAB ONE (17:37)
== END 2017-09-25 19:05 ==
DX: R45.851 Suicidal ideations (principal); F10.20 Alcohol dependence, uncomplicated; I10 Essential (primary) hypertension
CPT/HCPCS: 80305; G0480